=== PATIENT | male | born 1950 | race African-American/Black ===

== ENCOUNTER 2020-01-22 07:01 | Emergency (ER) | payer OTHER, SELFPAY ==
--- NOTE | ~2020-01-22 | CT_ITS ---
EXAMINATION: CT lumbar spine wo con DATE: 01/22/2020 07:49 INDICATION: 3 days of low back pain TECHNIQUE: Computed tomography (CT) of the lumbar spine was performed without intravenous contrast. A utomated exposure control and iterative reconstruction technique were employed. The dose-length produ ct was 424.26 mGy-cm. COMPARISON: CT abdomen and pelvis dated 11/15/2018 FINDINGS: Alignment is normal. Vertebral body heights are normal. No fracture. Minimal disc height loss with sm all endplate osteophytes at L3-L4 and L4-L5. Again seen are postoperative changes of prior bilateral partial nephrectomies with surgical clips and residual cortical scarring at both kidneys. Prominent g as-filled duodenal diverticulum arising from the second portion of the duodenum. Multiple additional diverticula along the descending and sigmoid colon without adjacent inflammatory stranding to suggest diverticulitis. Small amount of ascites in the pelvis. The following disc levels are specifically di scussed: T11-T12: The disc does not extend beyond the endplate margin. There is minimal bilateral facet joint osteoarthritis. There is no neural foraminal stenosis. There is no central canal stenosis. T12-L1: The disc does not extend beyond the endplate margin. There is mild bilateral facet joint oste oarthritis. There is no neural foraminal stenosis. There is no central canal stenosis. L1-L2: The disc does not extend beyond the endplate margin. There is mild bilateral facet joint osteo arthritis. There is no neural foraminal stenosis. There is no central canal stenosis. L2-L3: Disc is minimally bulging. There is moderate bilateral facet joint osteoarthritis. There is mi ld bilateral neural foraminal stenosis. There is no central canal stenosis. L3-L4: Disc is bulging with superimposed left paracentral disc extrusion with disc material extending up to 1.5 cm cephalad to the level of the inferior endplate of L3. There is hypertrophy of the ligam entum flavum. There is mild to moderate bilateral facet joint osteoarthritis. There is moderate bila teral, left greater than right neural foraminal stenosis. There is moderate central canal stenosis. L4-L5: Disc is bulging. There is mild to moderate bilateral facet joint osteoarthritis. There is mode rate bilateral neural foraminal stenosis. There is moderate to severe central canal stenosis. L5-S1: Disc is mildly bulging. There is mild bilateral facet joint osteoarthritis. There is mild bila teral neural foraminal stenosis. There is no central canal stenosis. IMPRESSION: 1. Mild to moderate lumbar spondylosis. 2. Nonspecific small amount of ascites in the pelvis. Reviewed, dictated and finalized at location A.
[2020-01-22 07:08] VITALS: BP 162/73; PULSE 76; RESP 16; TEMP 36.7; O2SAT 100
--- NOTE | 2020-01-22 07:26 | ED.BACK ---
HPI - Back Pain/Injury General Chief Complaint: Back Pain/Injury Stated Complaint: Low back pain Time Seen by Provider: 01/22/20 07:06 History of Present Illness HPI Narrative: Low back pain for 3 days. bilateral lower back radiating into the left inner thigh. moderate intensity. Worse with movement, especially twisting. He reports increased physical activity including walking and gardening recently. He has a h/o kidney cancer w/ bilateral kidney surgery. No fever, weakness, numbness, urinary symptoms. Related Data Home Medications Medication Instructions Recorded Confirmed aspirin 81 mg tablet,delayed 81 mg PO DAILY 08/31/19 11/30/19 release atorvastatin 20 mg tablet 20 mg PO DAILY 08/31/19 11/30/19 finasteride 5 mg tablet 5 mg PO DAILY 08/31/19 11/30/19 hydrochlorothiazide 12.5 mg capsule 12.5 mg PO DAILY 08/31/19 11/30/19 Allergies Allergy/AdvReac Type Severity Reaction Status Date / Time Cephalosporins Allergy Mild Unknown Verified 01/22/20 07:12 cefadroxil Allergy Unknown Unknown Verified 01/22/20 07:12 cephalexin Allergy Unknown Unknown Verified 01/22/20 07:12 clindamycin Allergy Unknown loose Verified 08/29/17 21:20 frequent stools lisinopril Allergy Unknown elevated Verified 08/29/17 21:20 creatinine Penicillins Allergy Unknown swelling Verified 08/29/17 21:20 Review of Systems Review of Systems: All systems reviewed & are unremarkable except as noted in HPI and below Constitutional: Constitutional: Denies chills and Denies fever(s) Cardiovascular: Cardiovascular: Denies chest pain Respiratory: Respiratory: Denies dyspnea Gastrointestinal: Gastrointestinal: Denies constipation, Denies diarrhea, Denies nausea and Denies vomiting Genitourinary: Genitourinary: Denies hematuria, Denies oliguria, Denies dysuria and Denies urinary frequency Musculoskeletal: Musculoskeletal: Reports back pain Integumentary/Breasts: Skin/Breast: Denies rash Neurologic: Denies numbness and Denies weakness PMF Past Medical History Medical History CKD (chronic kidney disease) Herpes simplex ophthalmicus Renal cell cancer Surgical History Surgical History History of nephrectomy, right 2018 Social History Social History Smoking status: Never smoker Alcohol intake: never Exam Const: General: healthy appearing, no acute distress and alert Nutritional Appearance: well nourished Orientation/consciousness: patient oriented x3 Limitations: no limitations HENMT: Head: normal to inspection Resp: Effort & Inspection: normal respiratory effort Auscultation: clear to auscultation bilaterally Cardio: Rate: regular rate Rhythm: regular rhythm Skin: General skin exam: normal color Rashes: no rashes Neuro: General: patient oriented x3, moves all extremities, no focal motor deficits and CN's II-XI intact bilaterally Speech: normal speech Gait exam (Neuro): Normal gait present Extrem: General: normal to inspection Course Vital Signs Vital signs: Vital Signs Temperature 36.7 C 01/22/20 07:08 Pulse Rate 76 01/22/20 07:08 Respiratory Rate 16 01/22/20 07:08 Blood Pressure 162/73 H 01/22/20 07:08 Pulse Oximetry 100 01/22/20 07:08 Temperature 36.7 C 01/22/20 07:08 Pulse Rate 76 01/22/20 08:53 Respiratory Rate 18 01/22/20 08:53 Blood Pressure 156/70 H 01/22/20 08:53 Pulse Oximetry 98 01/22/20 08:53 MDM - Back Pain/Injury MDM Narrative Medical decision making narrative: His pain is likely due due to his increased activity, gardening in particular which requires repeated bending at the waist. Given his age and cancer his tory I will obtain a CT to rule out more concerning pathology. Differential Diagnosis Differential diagnosis: Likely lumbar radiculopathy, sciatica, strain of lumbar pedro
[2020-01-22] MEDS: DIAZEPAM 5 MG TABLET PO (07:32)
--- NOTE | 2020-01-22 07:33 | PC.NURSE ---
Patient notified we need a urine sample, verbalized he would attempt.
[2020-01-22 07:56] LABS: Add Urine Microscopic? YES; Appearance Urine Clear (Clear); Bilirubin Urine Negative (Negative); Blood Urine Negative (Negative); Color Urine Straw (Yellow); Glucose Urine UA Negative (Negative); Ketones Urine Negative (Negative); Leukocyte Esterase Ur Negative LEU/UL (Negative); Mucus Urine Rare /lpf; Nitrate Urine Negative (Negative); Protein Urine 1+ mg/dL (Negative); RBC Urine 0-2 /hpf (0-2); Specific Grav Ur 1.016 (1.001-1.035); Urobilinogen Urine Negative mg/dL (<2.0); WBC Urine 0-3 /hpf
[2020-01-22] MEDS: TRAMADOL HCL 50 MG TABLET PO (08:52)
[2020-01-22 08:53] VITALS: BP 156/70; PULSE 76; RESP 18; O2SAT 98
== END 2020-01-22 08:54 | disposition home or self-care (01) ==
PROVIDERS: Emergency Provider Emergency Medicine; PCP Family Medicine
DX: M47.817 Spondylosis without myelopathy or radiculopathy, lumbosacral region (principal); Z79.82 Long term (current) use of aspirin; N18.9 Chronic kidney disease, unspecified; Z90.5 Acquired absence of kidney; Z85.528 Personal history of other malignant neoplasm of kidney
CPT/HCPCS: 72131; 81001; 99284; A9270